=== PATIENT | female | born 1980 | race African-American/Black ===

== ENCOUNTER 2019-01-02 09:39 | Day surgery (SDC) | payer OTHER ==
[2019-01-01 12:24] LABS: HEMATOCRIT 36.3 % (36.0-47.0); HEMOGLOBIN 11.3 g/dL (12.0-15.5); MEAN CORPUSCULAR HEMOGLOBIN 21.4 pg (27.0-33.4); MEAN CORPUSCULAR HGB CONC 31.1 g/dL (32.0-36.0); MEAN CORPUSCULAR VOLUME 69 fl (80-97); PLATELET COUNT 350 10^3/uL (150-450); RED BLOOD COUNT 5.27 10^6/uL (3.72-5.28); RED CELL DISTRIBUTION WIDTH 24.4 % (11.5-14.0); WHITE BLOOD COUNT 4.8 10^3/uL (4.0-10.5)
[2019-01-01 12:30] LABS: APPEARANCE,URINE CLEAR; BILIRUBIN,URINE NEGATIVE (NEGATIVE); COLOR,URINE YELLOW; GLUCOSE, URINE NEGATIVE (NEGATIVE); KETONES,URINE NEGATIVE (NEGATIVE); LEUKOCYTE ESTERASE,URINE NEGATIVE (NEGATIVE); NITRITE,URINE NEGATIVE (NEGATIVE); PROTEIN,URINE NEGATIVE (NEGATIVE); URINE SPECIFIC GRAVITY 1.008; UROBILINOGEN,URINE NEGATIVE mg/dL (<2.0)
[~2019-01-02 09:39] MED LIST: LACTATED RINGERS 1000 ML IV PRN; LIDOCAINE 0.5% INJ-PF (5 MG/ML) 50 ML SDV SUBCUT PRN
[2019-01-02] MEDS ORDERED: FENTANYL CITRATE INJ/PF 100 MCG/2 ML AMPUL ONE (11:05)
[2019-01-02] MEDS ORDERED: KETOROLAC TROMETHAMINE 60 MG/2 ML SDV ONE (11:05)
[2019-01-02] MEDS ORDERED: MIDAZOLAM 2 MG/2 ML INJ ONE (11:06)
[2019-01-02] MEDS ORDERED: PROPOFOL INJ 200 MG/20 ML VIAL IV ONE (11:06)
[2019-01-02] MEDS ORDERED: ONDANSETRON HCL INJ/PF 4 MG/2 ML SDV ONE (11:06)
[2019-01-02] MEDS ORDERED: DEXAMETHASONE SOD PHOSPHATE INJ 4 MG/1 ML VIAL ONE (11:06)
[2019-01-02] MEDS ORDERED: DIPHENHYDRAMINE HCL 50 MG/ML VIAL IV PRN (11:39)
[2019-01-02] MEDS ORDERED: FENTANYL CITRATE INJ/PF 100 MCG/2 ML AMPUL IV PRN ×3 (11:39)
[2019-01-02] MEDS ORDERED: MEPERIDINE HCL/PF INJ 25 MG/1 ML DISP.SYRIN IV PRN (11:39)
[2019-01-02] MEDS ORDERED: OXYCODONE-ACETAMINOPHEN 5-325 MG TABLET PO PRN ×4 (11:39→12:18)
[2019-01-02] MEDS ORDERED: ONDANSETRON HCL INJ/PF 4 MG/2 ML SDV IV PRN (11:39)
[2019-01-02] MEDS ORDERED: PROMETHAZINE HCL INJ 25 MG/1 ML VIAL IV PRN ×2 (11:39)
[2019-01-02] MEDS ORDERED: MORPHINE SULFATE 10 MG/ML INJ IV PRN (11:39)
[2019-01-02] MEDS ORDERED: KETOROLAC TROMETHAMINE INJ/PF 30 MG/1 ML SDV IV PRN (12:18)
[2019-01-02] MEDS ORDERED: RINGERS SOLUTION,LACTATED 1,000 ML IV PRN (12:18)
[2019-01-02] MEDS ORDERED: IBUPROFEN 800 MG TABLET PO PRN (12:18)
--- NOTE | 2019-01-02 12:21 | Operative Report ---
Operative Report DATE OF SURGERY: 01/02/19 PREOPERATIVE DIAGNOSIS: Heavy menses POSTOPERATIVE DIAGNOSIS: Same OPERATION: Hysteroscopy D&C NovaSure ablation SURGEON: ZINA STEVENS ANESTHESIA: GA TISSUE REMOVED OR ALTERED: Endocervical and endometrial curettings ESTIMATED BLOOD LOSS: 10 cc INTRAOPERATIVE FINDINGS: Uterine cavity was 5 cm in length and 4.7 cm in width PROCEDURE: Patient was taken the OR and placed in supine position. General anesthesia was induced. She is placed in dorsolithotomy position using Zack stirrups. Her perineum and vagina were prepared and draped in a sterile fashion. Her bladder was drained with a red rubber catheter. Speculum was placed in the vagina and the anterior lip cervix was grasped with a tenaculum. Uterine sound was performed to 9 cm. The cervix was dilated allowing hysteroscope to be placed. An empty uterine cavity was observed. Endocervical and endometrial curettings were obtained. The NovaSure device was placed tested and fired. The length was 5 cm and with 4.7 cm. The amount of time for the ablation was nearly the full 2 minutes. At the end of the case the NovaSure was removed. Repeat hysteroscopy showed a well ablated uterine cavity. All instruments were removed she is placed back in supine position. She was extubated in the OR and taken recovery in stable condition.
--- NOTE | 2019-01-02 12:25 | Discharge Summary ---
Discharge Summary (SDC) - Discharge Final Diagnosis: Heavy menses menorrhagia Date of Surgery: 01/02/19 Discharge Date: 01/02/19 Condition: Good Prescriptions: Oxycodone HCl/Acetaminophen [Percocet 5-325 mg Tablet] 1 tab PO Q4HP PRN #30 tablet PRN Reason: Referrals: RAVINDER RAMIREZ FNP [Primary Care Provider] - Discharge Diet: Regular Discharge Activity: Balance Activity w/Rest, Pelvic Rest Report the Following to Your Physician Immediately: Fever over 101 Degrees, Unusual Bleeding
[2019-01-02 14:44] VITALS: BP 149/105
[2019-01-03] MEDS ORDERED: HYDROCHLOROTHIAZIDE 12.5 MG TABLET PO SCH (10:00)
[2019-01-03] MEDS ORDERED: (PENDING PHARMACY ID) (Iron,Carb/Vit C/Vit B12/Folic [Iron 100 Plus Tablet] 1 EACH) PO SCH (10:00)
== END 2019-01-02 14:05 | disposition home or self-care (01) ==
LOC: OROUT 09:39
PROVIDERS: ATTEND Obstetrics & Gynecology
DX: N92.0 Excessive and frequent menstruation with regular cycle (principal); I10 Essential (primary) hypertension; Z79.899 Other long term (current) drug therapy; N89.8 Other specified noninflammatory disorders of vagina; Z88.8 Allergy status to other drugs, medicaments and biological substances; Z88.5 Allergy status to narcotic agent
CPT/HCPCS: 36415 ×2; 84132; 84703; 85027; 81001; 88305 ×2; 58563; J2250; J1100; J1885; J3010; J2405; J2704; 952

== ENCOUNTER → 2019-12-10 | Day surgery (SDC) | payer OTHER ==
[~2019-12-10] MED LIST changes: +BUPIVACAINE HCL 0.5 % INJ/PF 30 ML SDV ONE; -LACTATED RINGERS 1000 ML IV PRN; -LIDOCAINE 0.5% INJ-PF (5 MG/ML) 50 ML SDV SUBCUT PRN; +METHYLPREDNISOLONE ACETATE INJ 80 MG/1 ML VIAL ONE
--- NOTE | 2019-12-10 16:19 | RADIOLOGY REPORT (SQ) ---
EXAM DESCRIPTION: FLUORO/NEEDLE PLACEMENT; INJECT/ASPIR HIP/SHLDR/KNEE COMPLETED DATE/TIME: 12/10/2019 4:06 pm REASON FOR STUDY: RIGHT HIP PAIN COMPARISON: None. FLUOROSCOPY TIME: 9 seconds of fluoroscopy was used. 1 images saved to PACS. LIMITATIONS: None. PROCEDURE: SITE OF INJECTION: Right hip LOCALIZING CONTRAST TYPE AND DOSE: 1 mL Omnipaque 300 MEDICATION TYPE AND DOSE: 80 mg Depo-Medrol and 6 mL Sensorcaine Using local anesthesia and sterile technique with fluoroscopic guidance, the needle was advanced into the joint. Iodinated contrast was injected to verify intraarticular placement. This was followed by therapeutic injection of the indicated medications. The needle was removed. There were no immediat e complications. Preprocedure pain level: 4/5. Postprocedure pain level: 0/5. IMPRESSION: THERAPEUTIC INJECTION OF THE RIGHT HIP JOINT ABOVE. COMMENT: Patient medication list reviewed: Yes- Quality ID# [id number]:Eligible professional attests to doc umenting in the medical record they obtained, updated, or reviewed the patient's current medications. . Quality ID 145: Final reports for procedures using fluoroscopy that document radiation exposure sunday rand, or exposure time and number of fluorographic images (if radiation exposure indices are not avail able) TECHNICAL DOCUMENTATION: JOB ID: [id number] 2010 [employer]- All Rights Reserved Reading location - IP/workstation name: [email or web address]
--- NOTE | 2019-12-10 16:19 | RADIOLOGY REPORT (SQ) ---
EXAM DESCRIPTION: FLUORO/NEEDLE PLACEMENT; INJECT/ASPIR HIP/SHLDR/KNEE COMPLETED DATE/TIME: 12/10/2019 4:06 pm REASON FOR STUDY: RIGHT HIP PAIN COMPARISON: None. FLUOROSCOPY TIME: 9 seconds of fluoroscopy was used. 1 images saved to PACS. LIMITATIONS: None. PROCEDURE: SITE OF INJECTION: Right hip LOCALIZING CONTRAST TYPE AND DOSE: 1 mL Omnipaque 300 MEDICATION TYPE AND DOSE: 80 mg Depo-Medrol and 6 mL Sensorcaine Using local anesthesia and sterile technique with fluoroscopic guidance, the needle was advanced into the joint. Iodinated contrast was injected to verify intraarticular placement. This was followed by therapeutic injection of the indicated medications. The needle was removed. There were no immediat e complications. Preprocedure pain level: 4/5. Postprocedure pain level: 0/5. IMPRESSION: THERAPEUTIC INJECTION OF THE RIGHT HIP JOINT ABOVE. COMMENT: Patient medication list reviewed: Yes- Quality ID# [id number]:Eligible professional attests to doc umenting in the medical record they obtained, updated, or reviewed the patient's current medications. . Quality ID 145: Final reports for procedures using fluoroscopy that document radiation exposure sunday rand, or exposure time and number of fluorographic images (if radiation exposure indices are not avail able) TECHNICAL DOCUMENTATION: JOB ID: [id number] 2010 [employer]- All Rights Reserved Reading location - IP/workstation name: [email or web address]
== END ==
LOC: RAD 15:10
PROVIDERS: ATTEND Nurse Practitioner Adult Health
DX: M25.551 Pain in right hip (principal)
CPT/HCPCS: 20610; 77002; J3490; J1040

== ENCOUNTER 2020-07-01 21:40 | Emergency (ER) | payer OTHER ==
--- NOTE | 2020-07-01 23:57 | ER Document Report ---
ED Medical Screen (RME) - General Chief Complaint: Blood Pressure Problem Stated Complaint: POSSIBLE HIGH BLOOD PRESSURE Time Seen by Provider: 07/01/20 23:49 Primary Care Provider: RAVINDER RAMIREZ FNP [Primary Care Provider] - Follow up as needed Mode of Arrival: Ambulatory Information source: Patient Notes: Patient presents complaining of elevated blood pressure reading. Patient states that she had previously been diagnosed with hypertension although her primary doctor took her off of this medication 4 months ago as her blood pressure had improved. Patient states she has been taking pre-workout and been exercising frequently. Patient states occasionally she will get headache and shortness of breath. Patient states that she checked her blood pressure today and it was elevated 170s/110. Patient also complains of swelling to the extremities. Patient complains of shortness of breath with chest pain at this time. Patient hypertensive in the ER. Patient states that she had been on lisinopril with HCTZ although her doctor took her off of the HCTZ and she stayed on the low-dose of lisinopril for her diabetes. I have greeted and performed a rapid initial assessment of this patient. A comprehensive ED assessment and evaluation of the patient, analysis of test results and completion of the medical decision making process will be conducted by additional ED providers. TRAVEL OUTSIDE OF THE [place] IN LAST 30 DAYS: No - Related Data Allergies/Adverse Reactions: ranitidine HCl [From Zantac] Allergy (Severe, Verified 12/31/18 16:14) Shortness of Breath tramadol [Tramadol] Allergy (Severe, Verified 12/31/18 16:14) Shortness of Breath Past Medical History - Past Medical History Cardiac Medical History: Reports: Hx Hypertension - on meds Denies: Hx Coronary Artery Disease, Hx Heart Attack Pulmonary Medical History: Denies: Hx Asthma, Hx Bronchitis, Hx COPD, Hx Pneumonia Neurological Medical History: Denies: Hx Cerebrovascular Accident, Hx Seizures Endocrine Medical History: Reports: Hx Diabetes Mellitus Type 2 - gestational Musculoskeltal Medical History: Denies Hx Arthritis Past Surgical History: Reports: Hx Section - x3, Hx Orthopedic Surgery - right hip scope x 2 - Immunizations Hx Diphtheria, Pertussis, Tetanus Vaccination: Yes Physical Exam - Vital signs Vitals: Temp Pulse Resp BP Pulse Ox 98.6 F 94 18 192/120 H 97 07/01/20 21:53 07/01/20 21:53 07/01/20 21:53 07/01/20 21:53 07/01/20 21:53 - Respiratory Respiratory status: No respiratory distress Breath sounds: Normal - Cardiovascular Rhythm: Regular Heart sounds: S1 appreciated, S2 appreciated Course - Vital Signs Vital signs: Temp Pulse Resp BP Pulse Ox 98.6 F 94 18 192/120 H 97 07/01/20 21:53 07/01/20 21:53 07/01/20 21:53 07/01/20 21:53 07/01/20 21:53 Doctor's Discharge - Discharge Referrals: RAVINDER RAMIREZ FNP [Primary Care Provider] - Follow up as needed
[2020-07-01] MEDS ORDERED: LISINOPRIL 10 MG TABLET PO ONE (23:58)
[2020-07-01] MEDS ORDERED: HYDROCHLOROTHIAZIDE 12.5 MG TABLET PO ONE (23:58)
[2020-07-02 04:58] LABS: ABSOLUTE EOSINOPHILS # (AUTO) 0.1 10^3/uL (0.0-0.6); ABSOLUTE LYMPHOCYTES (AUTO) 1.8 10^3/uL (0.5-4.7); ABSOLUTE MONOCYTES (AUTO) 0.3 10^3/uL (0.1-1.4); ABSOLUTE NEUT (AUTO) 2.3 10^3/uL (1.7-8.2); BASOPHILS % (AUTO) 0.3 % (0-2); HEMATOCRIT 41.8 % (36.0-47.0); LYMPHOCYTES % (AUTO) 39.8 % (13-45); MEAN CORPUSCULAR HEMOGLOBIN 26.8 pg (27.0-33.4); MEAN CORPUSCULAR HGB CONC 33.5 g/dL (32.0-36.0); MEAN CORPUSCULAR VOLUME 80 fl (80-97); MONOCYTES % (AUTO) 6.1 % (3-13); PLATELET COUNT 254 10^3/uL (150-450); RED BLOOD COUNT 5.24 10^6/uL (3.72-5.28); RED CELL DISTRIBUTION WIDTH 15.6 % (11.5-14.0); SEGMENTED NEUTROPHILS % (AUTO) 51.8 % (42-78); TOTAL CELLS COUNTED % (AUTO) 100 %; WHITE BLOOD COUNT 4.5 10^3/uL (4.0-10.5)
--- NOTE | 2020-07-02 05:07 | RADIOLOGY REPORT (SQ) ---
CHEST X-RAY 1 VIEW on 07/02/2020 at 4:23 AM CLINICAL INDICATION: Chest pain COMPARISON: None FINDINGS: The lungs are clear. Cardiac, hilar and mediastinal contours are within normal limits. Pulmonary vascularity is within normal limits. No bony abnormality is noted. IMPRESSION: No active disease.
[2020-07-02 05:16] LABS: APPEARANCE,URINE CLEAR; BILIRUBIN,URINE NEGATIVE (NEGATIVE); COLOR,URINE YELLOW; GLUCOSE, URINE NEGATIVE (NEGATIVE); KETONES,URINE NEGATIVE (NEGATIVE); LEUKOCYTE ESTERASE,URINE NEGATIVE (NEGATIVE); NITRITE,URINE NEGATIVE (NEGATIVE); PROTEIN,URINE NEGATIVE (NEGATIVE); URINE SPECIFIC GRAVITY 1.017; UROBILINOGEN,URINE NEGATIVE mg/dL (<2.0)
[2020-07-02 05:22] LABS: ALBUMIN 4.3 g/dL (3.5-5.0); ALKALINE PHOSPHATASE 103 U/L (38-126); ANION GAP 10 (5-19); ASPARTATE AMINO TRANSFERASE 28 U/L (14-36); BILIRUBIN,DIRECT 0.3 mg/dL (0.0-0.4); BILIRUBIN,TOTAL 0.4 mg/dL (0.2-1.3); BLOOD UREA NITROGEN 10 mg/dL (7-20); CALCIUM 9.2 mg/dL (8.4-10.2); CARBON DIOXIDE 27 mmol/L (22-30); CHLORIDE 103 mmol/L (98-107); GLUCOSE 181 mg/dL (75-110); TOTAL PROTEIN 7.6 g/dL (6.3-8.2)
[2020-07-02 05:34] LABS: NT PRO BNP 61 pg/mL (<125); TROPONIN I < 0.012 ng/mL
--- NOTE | 2020-07-02 09:01 | ER Document Report ---
ED Blood Pressure Problem - General Chief Complaint: High Blood Pressure Stated Complaint: POSSIBLE HIGH BLOOD PRESSURE Time Seen by Provider: 07/01/20 23:49 Primary Care Provider: RAVINDER RAMIREZ FNP [NO LOCAL MD] - Follow up as needed Mode of Arrival: Ambulatory Notes: 39-year-old female with past medical history of diabetes and hypertension presenting today with elevated blood pressure, headache, chest pain with deep breathing, and some shortness of breath. She states that she has been taking pre-workout for a month and a half. Last use pre-workout yesterday. She does not have any history of stroke, MA. She takes lisinopril for her blood pressure. She initially was also taking HCTZ but her doctor took her off of this back in February as her blood pressures were well controlled in the 110's/70's. Patient noticed that she began to have bilateral lower extremity swelling approximately 3 weeks ago. Her pain has decreased since she has been in the emergency department. She denies any headache. This has resolved. No fevers chills or additional symptoms reported. Since her stay in the ER she has received a dose of lisinopril and HCTZ. TRAVEL OUTSIDE OF THE [place] IN LAST 30 DAYS: No - Related Data Allergies/Adverse Reactions: ranitidine HCl [From Zantac] Allergy (Severe, Verified 12/31/18 16:14) Shortness of Breath tramadol [Tramadol] Allergy (Severe, Verified 12/31/18 16:14) Shortness of Breath Home Medications: metformin Past Medical History - General Information source: Patient - Social History Smoking Status: Never Smoker Frequency of alcohol use: None Family History: Reviewed & Not Pertinent - Past Medical History Cardiac Medical History: Reports: Hx Hypertension - on meds Denies: Hx Coronary Artery Disease, Hx Heart Attack Pulmonary Medical History: Denies: Hx Asthma, Hx Bronchitis, Hx COPD, Hx Pneumonia Neurological Medical History: Denies: Hx Cerebrovascular Accident, Hx Seizures Endocrine Medical History: Reports: Hx Diabetes Mellitus Type 2 - gestational Musculoskeletal Medical History: Denies Hx Arthritis Past Surgical History: Reports: Hx Section - x3, Hx Orthopedic Surgery - right hip scope x 2 - Immunizations Hx Diphtheria, Pertussis, Tetanus Vaccination: Yes Review of Systems - Review of Systems Constitutional: No symptoms reported EENT: No symptoms reported Cardiovascular: See HPI Respiratory: See HPI Gastrointestinal: No symptoms reported Genitourinary: No symptoms reported Female Genitourinary: No symptoms reported Musculoskeletal: No symptoms reported Skin: No symptoms reported Hematologic/Lymphatic: No symptoms reported Neurological/Psychological: No symptoms reported Physical Exam - Vital signs Vitals: Temp Pulse Resp BP Pulse Ox 98.6 F 94 18 192/120 H 97 07/01/20 21:53 07/01/20 21:53 07/01/20 21:53 07/01/20 21:53 07/01/20 21:53 Interpretation: Normal. No: Hypertensive, Tachycardic, Hypoxic, Tachypneic - Notes Notes: Adult General: GENERAL: Alert, interacts well. No acute distress HEAD: Normocephalic, atraumatic EYES: Pupils equal, round and reactive to light. Extraocular movements intact. ENT: Airway patent. Nares patent. NECK: Full range of motion. Supple. Trachea midline. No lymphadenopathy. LUNGS: Clear to auscultation bilaterally, no wheezes, rales, or rhonchi. No respiratory distress. Nontender chest wall. HEART: Regular rate and rhythm. No murmurs, rubs or gallops. ABDOMEN: Soft, nontender. Nondistended. (-) Manson sign. Bowel sounds present in all 4 quadrants. No rebound, guarding or masses. GENITOURINARY: Deferred EXTREMITIES: Moves all 4 extremities spontaneously. Bilateral non pitting edema, normal radial and dorsal pedis pulses bilaterally. No cyanosis. BACK: No cervical, thoracic, lumbar midline tenderness. No saddle anesthesia, normal distal neurovascular exam. Moves all extremities with full range of motion. NEUROLOGICAL: Alert and oriented x3. Normal speech. Cranial nerves II through XII grossly intact. Strength 5/ 5 in all extremities. PSYCH: Normal affect, normal mood. SKIN: Warm, dry, normal turgor. No rashes or lesions noted. Course - Re-evaluation Re-evalutation: 07/02/20 08:56 Patient's blood pressure is currently 137/88. Chest x-ray is unremarkable. Patient does have an elevated glucose of 181. She has taken her dose of metoprolol this morning. Her BNP is negative. She does have blood in her urine. I did discuss this with the patient. Her heart score is 2. PERC is positive due to leg swelling. Venous doppler is negative for dvt or svt. D dimer is <.50. Second trop is negative. BNP is 61. Heart score is 3. I have low suspicion for ACS or emergent medical condition. Her symptoms have decreased since being in the emergency department. I discussed these findings with the patient and recommend close follow up with primary care provider. I also discussed discontinuing taking preworkout as this could have led to her symptoms. I will give her one week of hctz to help her high blood pressure. I discussed emergent return precautions to the emergency department. Patient acknowledges and verbalizes understanding of instructions and plan. All questions answrered. - Vital Signs Vital signs: Temp Pulse Resp BP Pulse Ox 97.9 F 80 16 140/90 H 100 07/02/20 06:06 07/02/20 12:01 07/02/20 12:01 07/02/20 12:01 07/02/20 12:01 - Laboratory Result Diagrams: 07/02/20 04:00 07/02/20 04:00 Laboratory results interpreted by me: 07/02/20 07/02/20 07/02/20 04:00 04:00 04:20 MCH 26.8 L RDW 15.6 H Glucose 181 H Urine Blood LARGE H - EKG Interpretation by Me Additional EKG results interpreted by me: 07/02/20 08:57 EKG shows a sinus rhythm at 69, W[place] interval of 132, QTC of 429. No ST segment elevations. Discharge - Discharge Clinical Impression: Hematuria Qualifiers: Hematuria type: unspecified type Qualified Code(s): R31.9 - Hematuria, unspecified Hypertension Qualifiers: Hypertension type: unspecified Qualified Code(s): I10 - Essential (primary) hypertension Chest pain Qualifiers: Chest pain type: unspecified Qualified Code(s): R07.9 - Chest pain, unspecified Condition: Stable Disposition: HOME, SELF-CARE Instructions: High Blood Pressure ([facility]), Hydrochlorothiazide ([facility]) Additional Instructions: You were seen today for chest pain. The exact cause of your pain is unclear. However, based on your cardiac enzyme testing, chest x-ray, and EKG it does not appear that it is from an immediately life-threatening cause at this time. Although your testing here is normal is critical that you follow-up with your primary care physician for continued evaluation of this chest pain and possible stress testing. Please discontinue taking preworkout as I believe this has contributed to your symptoms. I recommend you see your physician within the next 24-48 hours to be evaluated for consideration of a stress test. Please return to emergency department immediately if you have worsening of your chest pain, shortness of breath, vomiting, become unable to exert yourself due to pain or difficulty breathing, you pass out, or have any pain that radiates into your arms, jaw, or back. Please also return if you have any additional symptoms that are concerning to you. I also recommend you have follow up with your primary care for the blood in your urine noted in the urine sample today. Also follow up with your primary care for your blood pressure. Prescriptions: Hydrochlorothiazide 12.5 mg PO DAILY 7 Days #7 tablet Referrals: RAVINDER RAMIREZ FNP [NO LOCAL MD] - Follow up as needed
--- NOTE | 2020-07-02 11:39 | RADIOLOGY REPORT (SQ) ---
EXAM DESCRIPTION: VENOUS BILATERAL LOWER IMAGES COMPLETED DATE/TIME: 07/02/2020 11:23 am REASON FOR STUDY: bilateral leg swelling COMPARISON: None. TECHNIQUE: Dynamic and static yusuf scale and color images acquired of both lower extremity venous sy stems. Selected spectral images acquired with additional compression and augmentation maneuvers. Imag es stored on PACS. LIMITATIONS: None. FINDINGS: RIGHT LEG COMMON FEMORAL AND FEMORAL: Normal phasicity, compression and augmentation. No visualized echogenic m aterial on yusuf scale. No defects on color images. POPLITEAL: Normal compression and augmentation. No visualized echogenic material on yusuf scale. No de fects on color images. CALF VESSELS: Normal compression and augmentation. No visualized echogenic material on yusuf scale. No defects on color image. GSV AND SSV: Normal compression. No visualized echogenic material on yusuf scale. No defects on color images. ANY DEEP VENOUS INSUFFICIENCY: Not evaluated. ANY EVIDENCE OF POPLITEAL CYST: No. OTHER: No other significant finding. LEFT LEG COMMON FEMORAL AND FEMORAL: Normal phasicity, compression and augmentation. No visualized echogenic m aterial on yusuf scale. No defects on color images. POPLITEAL: Normal compression and augmentation. No visualized echogenic material on yusuf scale. No de fects on color images. CALF VESSELS: Normal compression and augmentation. No visualized echogenic material on yusuf scale. No defects on color images. GSV AND SSV: Normal compression. No visualized echogenic material on yusuf scale. No defects on color images. ANY DEEP VENOUS INSUFFICIENCY: Not evaluated. ANY EVIDENCE POPLITEAL CYST: No. OTHER: No other significant finding. IMPRESSION: NO EVIDENCE DVT OR SVT IN EITHER LEG. TECHNICAL DOCUMENTATION: JOB ID: [id number] 2010 [employer]- All Rights Reserved Reading location - IP/workstation name: [email or web address]
[2020-07-02 12:05] VITALS: BP 140/90
--- NOTE | 2020-07-02 21:29 | EKG REPORT ---
SEVERITY:- BORDERLINE ECG - SINUS RHYTHM BORDERLINE T WAVE ABNORMALITIES : Confirmed by: Zayda Parker MD 02-Jul-2020 21:28:41
== END 2020-07-02 12:01 | disposition home or self-care (01) ==
LOC: ER 21:40
DX: I10 Essential (primary) hypertension (principal); R31.9 Hematuria, unspecified; R07.9 Chest pain, unspecified; R51 Headache; R07.81 Pleurodynia; R06.02 Shortness of breath
CPT/HCPCS: 36415; 71045; 80053; 81001; 83735; 83880; 84484; 84703; 85025; 85379; 93005; 93010; 93970; 99285

== ENCOUNTER → 2020-07-23 | Day surgery (SDC) | payer OTHER ==
--- NOTE | 2020-07-23 17:19 | RADIOLOGY REPORT (SQ) ---
EXAM DESCRIPTION: INJECT/ASPIR HIP/SHLDR/KNEE; FLUORO/NEEDLE PLACEMENT IMAGES COMPLETED DATE/TIME: 07/23/2020 1:46 pm REASON FOR STUDY: UNILATERAL PRIMARY OSTEOARTHRITIS, RIGHT HIP M16.11 UNILATERAL PRIMARY OSTEOARTHR ITIS, RIGHT HIP COMPARISON: 12/10/2019 FLUOROSCOPY TIME: 0.11 seconds 1 images saved to PACS. LIMITATIONS: None. PROCEDURE: SITE OF INJECTION: Right hip LOCALIZING CONTRAST TYPE AND DOSE: 1 cc Omnipaque MEDICATION TYPE AND DOSE: Depo-Medrol 80 mg, lidocaine 6 cc, Sensorcaine 5 cc Using local anesthesia and sterile technique with fluoroscopic guidance, the needle was advanced into the joint. Iodinated contrast was injected to verify intraarticular placement. This was followed by therapeutic injection of the indicated medications. The needle was removed. There were no immediat e complications. Preprocedure pain level: 4/5. Postprocedure pain level: 0/5. IMPRESSION: THERAPEUTIC INJECTION OF THE RIGHT JOINT ABOVE. COMMENT: Patient medication list reviewed: Yes- Quality ID# [id number]:Eligible professional attests to doc umenting in the medical record they obtained, updated, or reviewed the patient's current medications. . Quality ID 145: Final reports for procedures using fluoroscopy that document radiation exposure sunday rand, or exposure time and number of fluorographic images (if radiation exposure indices are not avail able) TECHNICAL DOCUMENTATION: JOB ID: [id number] 2010 [employer]- All Rights Reserved Reading location - IP/workstation name: [email or web address]
== END ==
LOC: RAD 13:06
PROVIDERS: ATTEND Physician Assistant
DX: M16.11 Unilateral primary osteoarthritis, right hip (principal)
CPT/HCPCS: 20610; 77002; J3490; J1040

== ENCOUNTER → 2020-09-01 | Outpatient (CLI) | payer OTHER | LOC: OD 11:45 → EDSTATUS 09-07 11:30 | PROVIDERS: ATTEND Orthopaedic Surgery | DX: U07.1 COVID-19 (principal) | CPT/HCPCS: 87635; C9803 ==

== ENCOUNTER 2020-10-26 13:07 | Day surgery (SDC) | payer OTHER ==
[2020-10-22 12:38] LABS: HEMATOCRIT 40.2 % (36.0-47.0); HEMOGLOBIN 13.3 g/dL (12.0-15.5); MEAN CORPUSCULAR HEMOGLOBIN 26.6 pg (27.0-33.4); MEAN CORPUSCULAR HGB CONC 33.1 g/dL (32.0-36.0); MEAN CORPUSCULAR VOLUME 80 fl (80-97); PLATELET COUNT 321 10^3/uL (150-450); RED CELL DISTRIBUTION WIDTH 14.8 % (11.5-14.0); WHITE BLOOD COUNT 4.1 10^3/uL (4.0-10.5)
[2020-10-22 12:57] LABS: POTASSIUM 4.2 mmol/L (3.6-5.0)
[~2020-10-26 13:07] MED LIST changes: -BUPIVACAINE HCL 0.5 % INJ/PF 30 ML SDV ONE; +CEFAZOLIN 2 GM/D5W RTU 2 GM/50 ML RTUPB IV PRN; +FENTANYL CITRATE INJ/PF 100 MCG/2 ML AMPUL ONE; +LACTATED RINGERS 1000 ML IV PRN; +LIDOCAINE 0.5% INJ-PF (5 MG/ML) 50 ML SDV SUBCUT PRN; +LIDOCAINE 1% INJ-PF (10 MG/ML) 30 ML SDV ONE; -METHYLPREDNISOLONE ACETATE INJ 80 MG/1 ML VIAL ONE; +MIDAZOLAM 2 MG/2 ML INJ ONE; +PROPOFOL INJ 200 MG/20 ML VIAL IV ONE
[2020-10-26] MEDS ORDERED: CEFAZOLIN 2 GM/D5W RTU 2 GM/50 ML RTUPB IV ONE (13:29)
[2020-10-26 13:55] LABS: APPEARANCE,URINE SLIGHTLY-CLOUDY; BILIRUBIN,URINE NEGATIVE (NEGATIVE); COLOR,URINE YELLOW; GLUCOSE, URINE NEGATIVE (NEGATIVE); KETONES,URINE NEGATIVE (NEGATIVE); LEUKOCYTE ESTERASE,URINE NEGATIVE (NEGATIVE); NITRITE,URINE NEGATIVE (NEGATIVE); PROTEIN,URINE NEGATIVE (NEGATIVE); URINE SPECIFIC GRAVITY 1.023; UROBILINOGEN,URINE NEGATIVE mg/dL (<2.0)
[2020-10-26] MEDS ORDERED: ONDANSETRON HCL INJ/PF 4 MG/2 ML SDV IV PRN (14:22)
[2020-10-26] MEDS ORDERED: FENTANYL CITRATE INJ/PF 100 MCG/2 ML AMPUL IV PRN ×3 (14:22)
[2020-10-26] MEDS ORDERED: DIPHENHYDRAMINE HCL 50 MG/ML VIAL IV PRN (14:22)
[2020-10-26] MEDS ORDERED: MEPERIDINE HCL/PF INJ 25 MG/1 ML DISP.SYRIN IV PRN (14:22)
[2020-10-26] MEDS ORDERED: PROMETHAZINE HCL INJ 25 MG/1 ML VIAL IV PRN ×2 (14:22)
[2020-10-26 14:25] LABS: POTASSIUM 4.2 mmol/L (3.6-5.0)
--- NOTE | 2020-10-26 14:43 | Discharge Summary ---
Discharge Summary (SDC) - Discharge Final Diagnosis: Left index finger mass Date of Surgery: 10/26/20 Discharge Date: 10/26/20 Condition: Good Treatment or Instructions: Schedule Follow Up w/ Dr. Feliz Rinaldi @ [facility] for Surgery to be seen in 10-14 days or as scheduled [place]: [place]: [place]: May remove dressing on postop day #3, keep incision covered and dry. Ice and elevate May begin finger range of motion attempting to make full fist. Stool softener of choice when on pain medication. USE OF [id number]-SZZ-[id number] IBUPROFEN: Ibuprofen (Advil, Nuprin, Medipren, Motrin IB) is a medication for fever and pain control. In addition, it has anti- inflammatory effects which may be beneficial, especially in the treatment of injuries. It's best to take ibuprofen with food. Persons with ulcer disease or allergy to aspirin should notify their physician of this before taking ibuprofen. Ibuprofen can be given every four to six hours, for a total of four doses daily. Age Pain or fever dose Antiinflammatory dose 6-8 yr 200 mg (1 tab) 200 mg (1 tab) 9-11 yr 200 mg (1 tab) 200-400 mg (1-2 tab) 11-14 yr 200-400 mg (1-2 tab) 400 mg (2 tab) 15-adult 400 mg (2 tab) 600 mg (3 tab) ORAL NARCOTIC MEDICATION: You have been given a prescription for pain control. This medication is a narcotic. It's best taken with food, as nausea can result if taken on an empty stomach. Don't operate machinery or drive within six hours of taking this medication. Do not combine this medicine with alcohol, or with any medication which can cause sedation (such as cold tablets or sleeping pills) unless you get permission from the physician. Narcotics tend to cause constipation. If possible, drink plenty of fluids and eat a diet high in fiber and fruits. Please be aware that prescription narcotics also have the potential for abuse. People become addicted to these medications because of the general sense of wellbeing that they induce. This feeling along with a significant reduction in tension, anxiety, and aggression provides a stimulating seductive quality to these drugs. Once your pain is under control, we encourage you to discard your unused narcotics. Prescriptions: Hydrocodone/Acetaminophen [[place] 5-325 mg Tablet] 1 tab PO Q6 PRN #10 tablet PRN Reason: [facility] - Discharge Diet: As Tolerated Respiratory Treatments at Home: Deep Breathing/Coughing Discharge Activity: No Lifting Over 10 Pounds, No Lifting/Push/Pulling Report the Following to Your Physician Immediately: Fever over 101 Degrees, Unusual Bleeding, Redness, Swelling, Warmth, Increased Soreness
[2020-10-26] MEDS ORDERED: FENTANYL CITRATE INJ/PF 100 MCG/2 ML AMPUL ONE (14:47)
[2020-10-26] MEDS ORDERED: ONDANSETRON HCL 8 MG TABLET PO PRN (15:01)
--- NOTE | 2020-10-26 15:03 | Operative Report ---
Operative Report DATE OF SURGERY: 10/26/20 PREOPERATIVE DIAGNOSIS: Left index finger mass POSTOPERATIVE DIAGNOSIS: Same OPERATION: Excision deep mass left index finger SURGEON: LITZY KWONG ANESTHESIA: LMAC TISSUE REMOVED OR ALTERED: Mass index finger COMPLICATIONS: None ESTIMATED BLOOD LOSS: Minimal PROCEDURE: Indication for above procedure: 40-year-old female who developed a mass on the dorsal aspect of her index finger. Was seen in the office which we discussed treatment options including operative versus nonoperative invention after discussing risk benefits decision was made to proceed with operative treatment. Procedure In Detail: Patient was seen and evaluated in the preoperative holding area. The left upper extremity was initialized and marked. Patient received 2g of Ancef IV for bacterial prophylaxis. Patient was taken back to the operative room where transferred to the operative table. A surgical team debriefing was performed ensuring all instrumentation was available, the surgical procedure was discussed with possible concerns reviewed. A digital block was performed utilizing 10 mL of 1% lidocaine without epinephrine. The upper extremity was prepped with chlorhexidine and alcohol and draped in a sterile fashion. A timeout was done identifying correct patient, procedure and extremity everyone in attendance agree with this and verbalized no concerns. Digital tourniquet was applied. Longitudinal skin incision was made centered over the dorsal radial aspect at the level of the middle phalanx. Blunt dissection was performed. Peripheral veins were coagulated bipolar cautery. The mass was isolated and emanating from the extensor mechanism causing a small amount of erosion from the dorsal radial aspect of the middle phalanx. The mass was removed in its entirety. The bone was debrided with a curette. No residual lesions were appreciated. Tourniquet was then removed and the remaining bleeding was coagulated bipolar cautery. Wound was copiously irrigated with normal saline. Skin was closed with interrupted 4-0 nylon suture. Wound was dressed with Xeroform and a soft dressing. Sponge counts, instrument counts, needle counts counts were correct. Patient was then awoken from anesthesia. Transferred from the operating room table to the operating room stretcher. There was no intraoperative complications patient tolerated procedure well stable to PACU. Postoperative plan: Patient will follow-up as scheduled for wound check. They will call with any q uestions or concerns. We will discuss pathology results.
[2020-10-26 18:23] VITALS: BP 121/84
== END 2020-10-26 16:30 | disposition home or self-care (01) ==
LOC: OROUT 13:07
PROVIDERS: ATTEND Orthopaedic Surgery
DX: C49.12 Malignant neoplasm of connective and soft tissue of left upper limb, including shoulder (principal); Z01.812 Encounter for preprocedural laboratory examination; Z20.822 Contact with and (suspected) exposure to COVID-19; Z79.899 Other long term (current) drug therapy; Z79.84 Long term (current) use of oral hypoglycemic drugs; E11.9 Type 2 diabetes mellitus without complications; I10 Essential (primary) hypertension
CPT/HCPCS: 36415 ×2; 80051; 82947; 84132; 85027; 87635; 81025; 81001; 83036; 88342 ×2; 88341 ×2; 88305 ×2; 01830; 26116; J2250; J3010; J3490; J2704; J0690; C9803; 1830